=== PATIENT | female | born 1975 | race Caucasian/White ===

== ENCOUNTER → 2019-06-14 | Outpatient (CLI) | payer OTHER ==
[~2019-06-14] MED LIST: IBUP100S44 PO; MAPA500T17 PO; ULTR37.539 PO; ULTR50TA PO
[2019-06-14 15:24] LABS: FREE T4 1.17 NG/DL (0.76-1.46); THYROID STIMULATING HORMONE 1.77 uIU/ML (0.358-3.740)
== END ==
LOC: M LAB 14:29
PROVIDERS: ATTEND Internal Medicine Gastroenterology
DX: R19.7 Diarrhea, unspecified (principal)

== ENCOUNTER → 2019-06-17 | Outpatient (CLI) | payer OTHER ==
[~2019-06-17] MED LIST changes: +AMLO5TAB6 PO; +CELE1CAP9 PO; +D-10TAB3 PO; +DICY20TA11 PO; +GLUCAGON FOR INJ 1 MG VIAL (J1610) As Ordered ONE; +ISOVUE-370 76% 100ML VIAL (Q9967) As Ordered ONE; +OXYB10TA23 PO; +SULF500T2 PO; +VoLumen 0.1% SUSPENSION 450ML BOTTLE As Ordered ONE
--- NOTE | 2019-06-17 16:07 | REP ---
CT ENTEROGRAPHY: 06/17/2019. Clinical history: Abnormal weight loss. Prior cholecystectomy and hysterectomy. Technique: Our standard protocol was utilized including three bottles of 450 ml was 0.1% contrast by mouth at 20-minute intervals for 1 hour prior to the examination with 0.6 mg of glucagon IV prior to IV contrast and 100 ml as Isovue 370 given before contrast. Vital signs pre and post study were obtained and unremarkable. Arterial and venous phases of imaging obtained in abdomen pelvis with pre and post contrast standard and MIP coronal and sagittal reformats. Findings: CT abdomen: Lung bases are clear. Heart not enlarged. There is no pericardial thickening or effusion. Liver is lower density than spleen on these studies suggesting possible fatty infiltration. No hepatic mass, intrahepatic biliary dilatation nor hepatosplenomegaly. No ascites in the upper abdomen. Gallbladder absent. Pancreas shows no mass, ductal dilatation or inflammatory change in the peripancreatic fat. No adenopathy. The aorta is without aneurysm or dissection. No periaortic, retroperitoneal or mesenteric pathologic sized nodes in the upper abdomen with nodes up to 4 mm in short axis seen which I would regard as normal. There is also some very subtle stranding in the mesenteric fat without the "comb" sign. There is some mild small bowel wall thickening of the proximal jejunal loops with the mid to distal jejunum and ileum are without similar findings. No thickening of the lateral coronal fascia or stranding. Colon shows a few scattered diverticula in the splenic flexure. The transverse colon was unremarkable. Left colon without signs of colitis, diverticulitis, stricture or mass. There is an umbilical hernia with only omental fat present maximum diameter 2.6 cm. Kidneys show function in a symmetric fashion without obstruction, mass or stone. No ureteral dilatation or stone on either side. CT pelvis: Small bowel loops without abnormal wall thickening or any significant stranding in the peripelvic fat. Distal left colon, sigmoid and rectum without definite acute finding. No inflammatory change about the cecum. The patient is status post hysterectomy and the vaginal cuff is intact. Bladder without mass, wall thickening or stone. No ventral or inguinal hernia nor pathologic sized inguinal adenopathy. The bone windows show degenerative endplate changes lumbar and thoracic spine with minor facet arthropathy lower lumbar spine but no compression deformity or destructive lesion. Visualized ribs intact. Sacrum, pelvis and hips with only minimal degenerative change and no destructive lesion. Impression: 1. Mild thickening of bowel wall of the proximal jejunum while the mid to distal jejunum and the and colon without bowel wall thickening. Only minimal stranding in the fat adjacent to the mesentery of the proximal jejunum. Subtle finding may be some gastroenteritis or early inflammatory bowel disease might also give this appearance. I do not have compelling evidence for suggestion for inflammatory bowel disease. 2. There is no ascites, abscess or pathologic sized adenopathy in the abdomen pelvis. 3. Suggesting fatty infiltration liver without enlargement of the liver or spleen. Gallbladder absent. Adrenal glands, pancreas, kidneys and stomach unremarkable. 4. Status post hysterectomy. The colon shows a few scattered diverticula without signs of diverticulitis, colitis, stricture or mass in the abdomen or pelvis. Terminal ileum, other pelvic small bowel loops in the cecum without acute finding. Electronically Signed by Neel Savage MD 06/17/2019 06:04 P
== END ==
LOC: M RAD 09:35
PROVIDERS: ATTEND Internal Medicine Gastroenterology
DX: R63.4 Abnormal weight loss (principal); Z90.79 Acquired absence of other genital organ(s)
CPT/HCPCS: 74177; J1610; Q9967

== ENCOUNTER → 2019-06-20 | Outpatient (REF) | payer OTHER ==
[~2019-06-20] MED LIST changes: -AMLO5TAB6 PO; -CELE1CAP9 PO; -D-10TAB3 PO; -DICY20TA11 PO; -GLUCAGON FOR INJ 1 MG VIAL (J1610) As Ordered ONE; -ISOVUE-370 76% 100ML VIAL (Q9967) As Ordered ONE; -OXYB10TA23 PO; -SULF500T2 PO; -VoLumen 0.1% SUSPENSION 450ML BOTTLE As Ordered ONE
[2019-06-20 19:14] LABS: CLOSTRIDIUM DIFFICILE PCR NEGATIVE (NEGATIVE)
== END ==
LOC: M LAB REF 15:56
PROVIDERS: ATTEND Internal Medicine Gastroenterology
DX: R19.7 Diarrhea, unspecified (principal)

== ENCOUNTER 2019-08-19 10:42 | Day surgery (SDC) | payer OTHER ==
[~2019-08-19] VITALS: Ht 162.6 cm; Wt 84.8 kg
[~2019-08-19 10:42] MED LIST changes: +AMLO5TAB6 PO; +CELE1CAP9 PO; +D-10TAB3 PO; +DICY20TA11 PO; +NS 1,000 ML IV ONE; +OXYB10TA2 PO; +SULF500T2 PO
[2019-08-19] MEDS ORDERED: LIDOCAINE 2% INJ 100 MG/5 ML SDV (FOR ANES.) As Ordered ONE (10:51)
[2019-08-19] MEDS ORDERED: PROPOFOL 200 MG/20 ML VIAL As Ordered ONE (10:51)
[2019-08-19] MEDS ORDERED: fentaNYL 100 MCG/2 ML INJECTION (J3010) As Ordered ONE (11:23)
--- NOTE | 2019-08-19 12:06 | ROOR ---
Patient Name: Cari Arvizu Procedure Date: 08/19/2019 11:52 AM Date of : 1975 Age: 44 Room: [facility] Gender: Female Note Status: Finalized Procedure: Upper GI endoscopy Indications: Diarrhea, Weight loss Providers: Jon MARTINEZ MD Referring MD: CAR MIRANDA DO Requesting Provider: Medicines: Monitored Anesthesia Care Complications: No immediate complications. Procedure: Pre-Anesthesia Assessment: - The heart rate, respiratory rate, oxygen saturations, blood pressure, adequacy of pulmonary ventilation, and response to care were monitored throughout the procedure. The Endoscope was introduced through the mouth, and advanced to the third part of duodenum. The upper GI endoscopy was accomplished without difficulty. The patient tolerated the procedure well. Findings: The esophagus was normal. The stomach was normal. The examined duodenum was normal. Impression: - Normal esophagus. - Normal stomach. - Normal examined duodenum. - No specimens collected. Recommendation: - Perform a colonoscopy today. Jon Martinez MD Jon MARTINEZ MD 08/19/2019 12:05:55 PM Electronically signed by Jon MARTINEZ MD Number of Addenda: 0 Note Initiated On: 08/19/2019 11:52 AM Estimated Blood Loss: Estimated blood loss: none.
--- NOTE | 2019-08-19 12:31 | ROOR ---
Patient Name: Cari Arvizu Procedure Date: 08/19/2019 11:53 AM Date of : 1975 Age: 44 Room: [facility] Gender: Female Note Status: Finalized Procedure: Colonoscopy Indications: Diarrhea, Weight loss Providers: Jon MARTINEZ MD Referring MD: CAR MIRANDA DO Requesting Provider: Medicines: Monitored Anesthesia Care Complications: No immediate complications. Procedure: Pre-Anesthesia Assessment: - The heart rate, respiratory rate, oxygen saturations, blood pressure, adequacy of pulmonary ventilation, and response to care were monitored throughout the procedure. The Colonoscope was introduced through the anus and advanced to 15 cm into the ileum. The colonoscopy was performed without difficulty. The patient tolerated the procedure well. The quality of the bowel preparation was good. Findings: The perianal and digital rectal examinations were normal. The terminal ileum appeared normal. A 10 mm polyp was found in the recto-sigmoid colon. The polyp was pedunculated. The polyp was removed with a cold snare. Resection and retrieval were complete. To prevent bleeding after the polypectomy, two hemostatic clips were successfully placed. There was no bleeding at the end of the procedure. Biopsies for histology were taken with a cold forceps from the entire colon for evaluation of microscopic colitis. For hemostasis, one hemostatic clip was successfully placed in the transverse colon. There was no bleeding at the end of the procedure. The exam was otherwise without abnormality on direct and retroflexion views. Impression: - The perianal exam and examined portion of the ileum (15 cm) was normal. - One 10 mm polyp at the recto-sigmoid colon, removed with a cold snare. Resected and retrieved. - The examination of the colon was otherwise normal on direct and retroflexion views. - Biopsies were taken with a cold forceps from the entire colon for evaluation of microscopic colitis. - Three clips were placed for hemostasis.(two in rectosigmoid polypectomy site, 1 in transvese colon biopsty site.) Recommendation: - Repeat colonoscopy in 3 - 5 years for surveillance. - Await pathology results. - Telephone endoscopist for pathology results in 2 weeks. - To visualize the small bowel, perform video capsule endoscopy at appointment to be scheduled. - My office will call you in the next few days to set you up for this study/exam. Jon Martinez MD Jon MARTINEZ MD 08/19/2019 12:31:21 PM Electronically signed by Jon MARTINEZ MD Number of Addenda: 0 Note Initiated On: 08/19/2019 11:53 AM Estimated Blood Loss: Estimated blood loss: none.
[2019-08-19 12:50] VITALS: BP 129/69
== END 2019-08-19 13:16 | disposition home or self-care (01) ==
LOC: M OPP 10:42
PROVIDERS: ATTEND Internal Medicine Gastroenterology
DX: D12.7 Benign neoplasm of rectosigmoid junction (principal); R19.7 Diarrhea, unspecified; R63.4 Abnormal weight loss; Z79.899 Other long term (current) drug therapy
CPT/HCPCS: 43235; 45380; 45385; 88305; J3010

== ENCOUNTER → 2019-08-25 | Outpatient (CLI) | payer OTHER ==
[~2019-08-25] MED LIST changes: -NS 1,000 ML IV ONE
--- NOTE | 2019-08-26 03:22 | REP ---
Clinical: Foreign body. Technique: Three supine views of the abdomen and pelvis. Findings: Surgical clips are appreciated. No further foreign bodies identified. The bowel gas pattern is nonspecific. No organomegaly. No abnormal calcifications. Skeletal structures are intact. Impression: No significant foreign body. Nonspecific bowel gas pattern. Electronically Signed by Denny Baker MD 08/26/2019 03:14 A
== END ==
LOC: M RAD 12:48
PROVIDERS: ATTEND Internal Medicine Gastroenterology
DX: Z03.89 Encounter for observation for other suspected diseases and conditions ruled out (principal); Z98.890 Other specified postprocedural states

== ENCOUNTER 2021-04-11 23:47 | Emergency (ER) | payer OTHER ==
[~2021-04-11] VITALS: Ht 162.6 cm; Wt 92.0 kg
[~2021-04-11 23:47] MED LIST changes: +AMLO1TAB24 PO; -AMLO5TAB6 PO; -OXYB10TA2 PO; +OXYB10TA23 PO
[2021-04-11] MEDS ORDERED: HUMI40KI SC (23:56)
[2021-04-12 03:01] VITALS: BP 162/94
[2021-04-12] MEDS ORDERED: MAGICMW SSP (03:15)
[2021-04-12] MEDS ORDERED: MAGIC MOUTHWASH SUSPENSION BTL SS ONE (03:15)
== END 2021-04-12 03:39 | disposition home or self-care (01) ==
LOC: M ED 23:47
DX: K12.0 Recurrent oral aphthae (principal); M06.9 Rheumatoid arthritis, unspecified; Z79.899 Other long term (current) drug therapy; Z98.890 Other specified postprocedural states

== ENCOUNTER 2024-02-23 18:58 | Emergency (ER) | payer OTHER ==
[~2024-02-23] VITALS: Ht 162.6 cm; Wt 92.3 kg
[~2024-02-23 18:58] MED LIST changes: +CELE0.09 PO; -CELE1CAP9 PO; -DICY20TA11 PO; +DICY20TA20 PO; +HUMI40KI SC; +MAGICMW SSP
[2024-02-24 02:11] VITALS: BP 137/77; TEMP 97.6; O2SAT 98
== END 2024-02-24 02:13 | disposition home or self-care (01) ==
LOC: M ED 18:58
DX: J68.9 Unspecified respiratory condition due to chemicals, gases, fumes and vapors (principal); Z79.899 Other long term (current) drug therapy

== ENCOUNTER 2025-03-16 06:41 | Day surgery (SDC) | payer OTHER ==
[~2025-03-16] VITALS: Ht 162.6 cm; Wt 89.4 kg
[~2025-03-16 06:41] MED LIST changes: +GLYCOPYRROLATE INJ 0.2 MG/ML 2 ML VIAL As Ordered ONE; +LIDOCAINE 2% 100MG/5ML SDV (FOR ANES.) As Ordered ONE; +propofoL 200 MG/20 ML VIAL As Ordered ONE
[2025-03-16 08:12] VITALS: BP 107/58; O2SAT 97
== END 2025-03-16 08:21 | disposition home or self-care (01) ==
LOC: M OPP 06:41
PROVIDERS: ATTEND Internal Medicine Gastroenterology
DX: Z12.11 Encounter for screening for malignant neoplasm of colon (principal); D12.2 Benign neoplasm of ascending colon; Z86.0100 Personal history of colon polyps, unspecified; Z80.0 Family history of malignant neoplasm of digestive organs; K57.30 Diverticulosis of large intestine without perforation or abscess without bleeding; K64.8 Other hemorrhoids; K58.9 Irritable bowel syndrome, unspecified; K21.9 Gastro-esophageal reflux disease without esophagitis; M06.9 Rheumatoid arthritis, unspecified; M19.90 Unspecified osteoarthritis, unspecified site; G43.909 Migraine, unspecified, not intractable, without status migrainosus; Z80.3 Family history of malignant neoplasm of breast
CPT/HCPCS: 45385; 88305; J1596